=== PATIENT | female | born 1980 | race African-American/Black ===

== ENCOUNTER 2023-07-19 09:15 | Emergency (ER) | payer BC ==
[2023-07-19 09:33] VITALS: BP 106/77; PULSE 111; RESP 18; TEMP 98.4; BMI 46.8
[2023-07-19] MEDS ORDERED: DIPHTH,PERTUSS(ACELL),TET 0.5 ML DISP.SYRIN IM ONE (11:01)
[2023-07-19] MEDS: DIPHTH,PERTUSS(ACELL),TET 0.5 ML DISP.SYRIN IM ONE (11:06)
== END 2023-07-19 12:03 | disposition home or self-care (01) ==
LOC: JER 09:15
PROC: 3E0234Z Introduction of Serum, Toxoid and Vaccine into Muscle, Percutaneous Approach (ICD-10-PCS; principal; 2023-07-19)
DX: S00.83XA Contusion of other part of head, initial encounter (principal); S00.511A Abrasion of lip, initial encounter; W00.0XXA Fall on same level due to ice and snow, initial encounter; Y93.01 Activity, walking, marching and hiking
CPT/HCPCS: 70486-TC; 90715; 99284-25